=== PATIENT | female | born 1930 | race Caucasian/White ===

== ENCOUNTER 2018-01-02 15:08 | Inpatient (IN) | payer OTHER ==
--- NOTE | 2018-01-02 15:13 | EDPHY ---
HPI/HX/ROS/PE/MDM Narrative: CHIEF COMPLAINT: Fall, right-sided injuries, right femur pain HPI: The patient is a deaf 87 y/o female arriving via EMS complaining of right leg pain and right arm injuries secondary to a fall while hiking at [facility] this afternoon. [place]. Per EMS, she described a mechanical trip on a loose rock and fall onto her right side. She denies head strike, loss of consciousness, midline spinal pain, weakness, paresthesias, or symptoms preceding the fall. She primarily complains of severe proximal right femur pain and abrasions and skin tears to her right forearm. She required 200mcg Fentanyl during extrication from the trail and received an additional 100mcg Fentanyl prior to arrival here. She is normally healthy and does not take anticoagulants. She communicates via lip reading only. Last PO intake 08:00 this morning. REVIEW OF SYSTEMS: Aside from elements discussed in the HPI, a comprehensive 10-point review of systems was reviewed and is negative. PMH: Deaf - reads lips only, no ASL; hypothyroidism SOCIAL HISTORY: Friends at bedside PHYSICAL EXAM: General:Patient is alert, in no acute distress. ENT:Eyes are normal to inspection. ENT inspection normal. Neck: Normal inspection. Full range of motion. Respiratory:No respiratory distress. Breath sounds normal bilaterally. Cardiovascular: Regular rate and rhythm. Strong peripheral pulses. Normal cap refill. Abdomen:The abdomen is nontender to palpation. There are no peritoneal signs. Back: Normal to inspection. No tenderness to palpation. Skin: Normal color. No rash. Warm and dry. Extremities: Right leg shortened and externally rotated with mid-thigh tenderness. U-shaped 3cm skin tear over right elbow. Otherwise extremities are normal in appearance with full range of motion. Neuro: Oriented x3. Normal motor function. Normal sensory function. ED Course: This is a deaf but otherwise healthy 87 y/o female who presents with right leg pain secondary to a mechanical fall while hiking this afternoon. Her right leg is shortened and externally rotated on exam and she has a skin tear to her right elbow. She is neurovascularly intact. Suspect femur fracture. Plan for IV , labs, hip x-ray, wound care, and pain management as needed. 0.25mg IV Dilaudid ordered. Hip x-ray: right intertrochanteric fracture. The 12 lead EKG was interpreted by myself. See hard copy and/or "tracemaster" electronic copy for interpretation. Reassessed patient and discussed findings with her and family at bedside. She will require admission for surgical repair of her femur fracture. 1610: Consulted with Dr. Guerrier, orthopedist. He will assess patient during admission. 1620: Spoke with hospitalist service. Dr. Argueta accepts admission. - Data Points Imaging Results: Imaging Impressions Hip X-Ray 01/02/18 15:12 Impression: Acute right intertrochanteric hip fracture, with a rotated lesser trochanter. Imaging: I viewed and interpreted images myself Laboratory Results: Laboratory Results 01/02/18 16:15 01/02/18 16:15 01/02/18 01/02/18 01/02/18 16:22 16:15 16:15 WBC 13.62 10^3/uL H 10^3/uL (3.80-9.50) RBC 3.63 10^6/uL L 10^6/uL (4.18-5.33) Hgb 11.1 g/dL L g/dL (12.6-16.3) Hct 34.3 % L % (38.0-47.0) MCV 94.5 fL fL (81.5-99.8) MCH 30.6 pg pg (27.9-34.1) MCHC 32.4 g/dL g/dL (32.4-36.7) RDW 13.1 % % (11.5-15.2) Plt Count 203 10^3/uL 10^3/uL (150-400) MPV 10.1 fL fL (8.7-11.7) Neut % (Auto) 89.8 % H % (39.3-74.2) Lymph % (Auto) 5.2 % L % (15.0-45.0) [place] % (Auto) 4.1 % L % (4.5-13.0) Eos % (Auto) 0.1 % L % (0.6-7.6) Baso % (Auto) 0.3 % % (0.3-1.7) Nucleat RBC Rel Count 0.0 % % (0.0-0.2) Absolute Neuts (auto) 12.22 10^3/uL H 10^3/uL (1.70-6.50) Absolute Lymphs (auto) 0.71 10^3/uL L 10^3/uL (1.00-3.00) Absolute Monos (auto) 0.56 10^3/uL 10^3/uL (0.30-0.80) Absolute Eos (auto) 0.02 10^3/uL L 10^3/uL (0.03-0.40) Absolute Basos (auto) 0.04 10^3/uL 10^3/uL (0.02-0.10) Absolute Nucleated RBC 0.00 10^3/uL 10^3/uL (0-0.01) Immature Gran % 0.5 % % (0.0-1.1) Immature Gran # 0.07 10^3/uL 10^3/uL (0.00-0.10) PT 14.0 SEC SEC (12.0-15.0) INR 1.06 (0.83-1.16) APTT 25.6 SEC SEC (23.0-38.0) Sodium 137 mEq/L mEq/L (135-145) Potassium 4.6 mEq/L mEq/L (3.3-5.0) Chloride 107 mEq/L mEq/L (97-110) Carbon Dioxide 23 mEq/l mEq/l (22-31) Anion Gap 7 mEq/L L mEq/L (8-16) BUN 19 mg/dL mg/dL (7-23) Creatinine 0.7 mg/dL mg/dL (0.6-1.0) Estimated GFR > 60 Glucose 131 mg/dL H mg/dL (70-100) Calcium 8.4 mg/dL L mg/dL (8.5-10.4) Medications Given: Discontinued Medications Hydromorphone HCl (Dilaudid) 0.25 mg IVP EDNOW ONE Stop: 01/02/18 15:25 Last Admin: 01/02/18 15:30 Dose: 0.25 mg Hydromorphone HCl (Dilaudid) 0.25 mg IVP EDNOW ONE Stop: 01/02/18 16:17 Last Admin: 01/02/18 16:23 Dose: 0.25 mg General Time Seen by Provider: 01/02/18 15:08 Initial Vital Signs: Initial Vital Signs Temperature (C) 37.1 C 01/02/18 15:17 Heart Rate 87 01/02/18 15:17 Respiratory Rate 16 01/02/18 15:17 Blood Pressure 171/93 H 01/02/18 15:17 O2 Sat (%) 93 01/02/18 15:17 O2 Delivery Mode Nasal Cannula O2 (L/minute) 3 Allergies/Adverse Reactions: No Known Allergies Allergy (Unverified 01/02/18 15:19) Home Medications: Medication Instructions Recorded Ascorbic Acid [Vitamin C 500 mg 3,000 mg PO BID 01/02/18 (*)] Estradiol [Estrace Vaginal (*)] 1 jose david VAG HS 01/02/18 Herbals/Supplements -Info Only 1 ea PO DAILY 01/02/18 Levothyroxine [Synthroid 125 mcg 125 mcg PO DAILY06 01/02/18 (*)] Liothyronine Sodium [Cytomel 5 mcg 5 mcg PO DAILY 01/02/18 (*)] Multivitamins [Multivitamin (*)] 1 tab PO DAILY 01/02/18 Progesterone,Micronized 100 mg PO DAILY 01/02/18 [Prometrium 100mg (RX)] Departure - Departure Disposition: [facility] Inpatient Acute Clinical Impression: Fracture, intertrochanteric, right femur Qualifiers: Encounter type: initial encounter Fracture type: closed Fracture alignment: displaced Qualified Code(s): S72.141A - Displaced intertrochanteric fracture of right femur, initial encounter for closed fracture Condition: Fair Referrals: Patient,NotPresent [Unknown] - As per Instructions Report Scribed for: Michael Pang Report Scribed by: Keerthi Gay Date of Report: 01/02/18 Time of Report: 15:13 Physician Review and Approval Statement: Portions of this note were transcribed by an ED scribe. I personally performed the history, physical exam, and medical decision making; and confirm the accuracy of the information in the transcribed note.
[2018-01-02] MEDS ORDERED: HYDROmorphONE/DILAUDID 2 MG/ML INJ IVP ONE ×2 (15:24→16:16)
[2018-01-02] MEDS ORDERED: HYDROmorphONE/DILAUDID 1 MG/ML INJ ONE (15:25)
--- NOTE | 2018-01-02 15:31 | CPEKG ---
Heart Rate: 89 RR Interval: 674 P-R Interval: 148 QRSD Interval: 78 QT Interval: 400 QTC Interval: 487 P [place]: 72 QRS [place]: -43 T Wave [place]: 68 EKG Severity - ABNORMAL ECG - EKG Impression: SINUS RHYTHM EKG Impression: ATRIAL PREMATURE COMPLEX EKG Impression: PROBABLE LEFT ATRIAL ABNORMALITY EKG Impression: LEFT AXIS DEVIATION EKG Impression: LEFT VENTRICULAR HYPERTROPHY EKG Impression: ANTERIOR INFARCT, AGE INDETERMINATE EKG Impression: BORDERLINE PROLONGED QT INTERVAL Electronically Signed By: Michael Pang 02-Jan-2018 17:00:38
[2018-01-02 16:26] LABS: PLATELET COUNT 203 10^3/uL (150-400)
[2018-01-02] MEDS ORDERED: ONDANSETRON 4 MG/2 ML VIAL IVP PRN ×2 (16:41→22:38)
[2018-01-02] MEDS ORDERED: ONDANSETRON DISINTEGRATING 4 MG TAB PO PRN (16:41)
[2018-01-02] MEDS ORDERED: ACETAMINOPHEN 325 MG TAB PO PRN (16:41)
[2018-01-02] MEDS ORDERED: D5W 1/2 NS W/ 20 KCl/L 1,000 ML IV SCH (16:45)
[2018-01-02 16:46] LABS: INR 1.06 (0.83-1.16)
[2018-01-02] MEDS ORDERED: hydrALAZINE 20 MG/ML VIAL IVP PRN (18:31)
[2018-01-02] MEDS ORDERED: hydrALAZINE 20 MG/ML VIAL IVP ONE (18:45)
[2018-01-02] MEDS ORDERED: MAGNESIUM HYDROXIDE 30 ML UDCUP PO PRN (19:12)
[2018-01-02] MEDS ORDERED: BISACODYL 10 MG SUPP PR PRN (19:12)
[2018-01-02] MEDS ORDERED: LACTULOSE 20 GM/30 ML UDCUP PO PRN (19:12)
--- NOTE | 2018-01-02 19:16 | PDGENHP ---
History and Physical - Chief Complaint Acute hip pain - History of Present Illness Primary care provider: Dr. Young in [place], [place] HPI: 87-year-old female presents with acute hip pain characterized as sharp, located in her right hip with some associated posterior lateral right-sided rib pain as well as skin tears located on her right arm. Onset of symptoms was on the day of presentation occurring after the patient experienced was described as a mechanical fall onto the affected area. This occurred while the patient and her partner were hiking. The pain has been of constant duration thereafter. It has been somewhat alleviated by 300 mcg of fentanyl. Prior to her onset of symptoms, the patient had otherwise been feeling well, and she had been visiting family here in [place]. She is otherwise a very physically active person, engaging in brisk walking approximately 30 min per day, without any chest pain or shortness of breath provoked by that level of activity. History Information - Allergies/Home Medication List Allergies/Adverse Reactions: No Known Allergies Allergy (Unverified 01/02/18 15:19) Home Medications: Ascorbic Acid [Vitamin C 500 mg (*)] 3,000 mg PO BID 01/02/18 [Last Taken Unknown] Estradiol [Estrace Vaginal (*)] 1 jose david VAG HS 01/02/18 [Last Taken Unknown] Herbals/Supplements -Info Only 1 ea PO DAILY 01/02/18 [Last Taken Unknown] Levothyroxine [Synthroid 125 mcg (*)] 125 mcg PO DAILY06 01/02/18 [Last Taken Unknown] Liothyronine Sodium [Cytomel 5 mcg (*)] 5 mcg PO DAILY 01/02/18 [Last Taken Unknown] Multivitamins [Multivitamin (*)] 1 tab PO DAILY 01/02/18 [Last Taken Unknown] Progesterone,Micronized [Prometrium 100mg (RX)] 100 mg PO DAILY 01/02/18 [Last Taken Unknown] I have personally reviewed and updated: family history, medical history, social history, surgical history - Past Medical History Additional medical history: Hypothyroidism. 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 - Surgical History Reports: no pertinent surgical hx - Family History Additional family history: No family history of venous thromboembolism - Social History Smoking Status: Never smoked Alcohol Use: None Drug Use: None Additional social history: From [facility], visiting with her partner, she has a son who lives locally, the patient engages in 30 min of brisk walking daily Review of Systems Review of Systems: ROS: 10pt was reviewed & negative except for what was stated in HPI & below Muscolosketal: Reports: joint pain (Right hip) Skin: Reports: other (Skin tears right arm) Physical Exam Physical Exam: Temp Pulse Resp BP Pulse Ox 37.1 C 105 H 18 181/121 H 96 01/02/18 18:04 01/02/18 18:04 01/02/18 18:04 01/02/18 19:02 01/02/18 18:04 O2 (L/minute) 2 Constitutional: no apparent distress, appears nourished, not in pain Eyes: PERRL, anicteric sclera, EOMI, other (Clear visual field deficits) Ears, Nose, Mouth, Throat: moist mucous membranes, ears appear normal, no oral mucosal ulcers, hard of hearing Cardiovascular: regular rate and rhythym, no murmur, rub, or gallop, No edema Respiratory: no respiratory distress, no rales or rhonchi, clear to auscultation Gastrointestinal: normoactive bowel sounds, soft, non-tender abdomen, no palpable masses Skin: other (Right upper extremity bandaged, no bruising or abrasion over right lateral chest) Musculoskeletal: other (Shortened and externally rotated right lower extremity with limited range of motion secondary to pain, tenderness to palpation over the lateral hip joint which is currently deformed, no tenderness to palpation over the right ribs) Neurologic: AAOx3, sensation intact bilaterally Psychiatric: interacting appropriately, not anxious, not encephalopathic, thought process linear Lab Data & Imaging Review 01/02/18 16:15 01/02/18 16:15 WBC 13.62 10^3/uL (3.80-9.50) H 01/02/18 16:15 RBC 3.63 10^6/uL (4.18-5.33) L 01/02/18 16:15 Hgb 11.1 g/dL (12.6-16.3) L 01/02/18 16:15 Hct 34.3 % (38.0-47.0) L 01/02/18 16:15 MCV 94.5 fL (81.5-99.8) 01/02/18 16:15 MCH 30.6 pg (27.9-34.1) 01/02/18 16:15 MCHC 32.4 g/dL (32.4-36.7) 01/02/18 16:15 RDW 13.1 % (11.5-15.2) 01/02/18 16:15 Plt Count 203 10^3/uL (150-400) 01/02/18 16:15 MPV 10.1 fL (8.7-11.7) 01/02/18 16:15 Neut % (Auto) 89.8 % (39.3-74.2) H 01/02/18 16:15 Lymph % (Auto) 5.2 % (15.0-45.0) L 01/02/18 16:15 [place] % (Auto) 4.1 % (4.5-13.0) L 01/02/18 16:15 Eos % (Auto) 0.1 % (0.6-7.6) L 01/02/18 16:15 Baso % (Auto) 0.3 % (0.3-1.7) 01/02/18 16:15 Nucleat RBC Rel Count 0.0 % (0.0-0.2) 01/02/18 16:15 Absolute Neuts (auto) 12.22 10^3/uL (1.70-6.50) H 01/02/18 16:15 Absolute Lymphs (auto) 0.71 10^3/uL (1.00-3.00) L 01/02/18 16:15 Absolute Monos (auto) 0.56 10^3/uL (0.30-0.80) 01/02/18 16:15 Absolute Eos (auto) 0.02 10^3/uL (0.03-0.40) L 01/02/18 16:15 Absolute Basos (auto) 0.04 10^3/uL (0.02-0.10) 01/02/18 16:15 Absolute Nucleated RBC 0.00 10^3/uL (0-0.01) 01/02/18 16:15 Immature Gran % 0.5 % (0.0-1.1) 01/02/18 16:15 Immature Gran # 0.07 10^3/uL (0.00-0.10) 01/02/18 16:15 PT 14.0 SEC (12.0-15.0) 01/02/18 16:22 INR 1.06 (0.83-1.16) 01/02/18 16:22 APTT 25.6 SEC (23.0-38.0) 01/02/18 16:22 Sodium 137 mEq/L (135-145) 01/02/18 16:15 Potassium 4.6 mEq/L (3.3-5.0) 01/02/18 16:15 Chloride 107 mEq/L (97-110) 01/02/18 16:15 Carbon Dioxide 23 mEq/l (22-31) 01/02/18 16:15 Anion Gap 7 mEq/L (8-16) L 01/02/18 16:15 BUN 19 mg/dL (7-23) 01/02/18 16:15 Creatinine 0.7 mg/dL (0.6-1.0) 01/02/18 16:15 Estimated GFR > 60 01/02/18 16:15 Glucose 131 mg/dL (70-100) H 01/02/18 16:15 Calcium 8.4 mg/dL (8.5-10.4) L 01/02/18 16:15 Visualized and Interpreted imaging results: Yes Interpretation: Intratrochanteric and external rotation right hip Visualized and Interpreted EKG results: Yes EKG Interpretation: Positive for: other (Normal sinus rhythm with poor R-wave progression in V2 to V4, some ST elevation in V4) Assessment & Plan Assessment: 87-year-old female presents with acute mechanical fall and subsequent acute traumatic right femur intratrochanteric fracture Plan: 1. Intratrochanteric fracture. Acute, new problem this provider, further workup indicated. Traumatic, secondary to mechanical fall, requiring surgical intervention given her active baseline -discussed with Dr. Michael Pang, he has reported to me that Dr. Meg Guerrier will evaluate the patient and potentially operate tonight -RCRI score of 0, conferring is 0.5% perioperative cardiovascular morbidity and/ or mortality risk, resulting in low cardiovascular risk for intermediate orthopedic risk surgery, recommend proceeding to surgery without any additional cardiac risk stratification at this time -preoperative EKG does demonstrate ST elevation in V4, the patient is currently chest pain-free, has not had any anginal symptoms prior to her fall, and she has a very active cardiovascular baseline, conferring a positive metabolic equivalents score prior to her surgery, which has good prognostic value for positive outcome -that being said, given her somewhat impaired ability to communicate, will check a postoperative troponin level to ensure no evidence of a perioperative ischemia -pain medication as needed -bowel regimen -incentive spirometer -her son, who has the best ability to communicate with the patient, via lip reading, will stay at her bedside tonight -continue on IV fluids and NPO preoperatively 2. Traumatic fall. Right rib pain, recommend rib scan, a right upper extremity skin abrasions, continue local wound care, get wound consultation in a.m. If more advanced 3. Anemia. Mild, unclear etiology, monitor hemoglobin level postoperatively for any evidence of blood loss Diet. NPO until surgery, then regular thereafter Prophylaxis. High risk patient, SCDs preoperative comma begin Lovenox 40 tomorrow if no bleeding complications Code. Full, son is MD HERMOSILLO Disposition. Anticipated discharge uncertain this time, anticipated length stay is greater than 48 hr for reasonable medical necessity including acute intra trochanteric fracture requiring surgical intervention, intensive therapy thereafter and potential jail facility placement depending on mobility limitations.
[2018-01-02] MEDS ORDERED: ROPIVACAINE HCL 20 MG/10 ML INJ EP ONE (20:19)
[2018-01-02] MEDS ORDERED: PROPOFOL 200 MG/20 ML VIAL ONE (20:56)
[2018-01-02] MEDS ORDERED: fentaNYL 100 MCG/2 ML INJ ONE ×2 (20:56→21:54)
[2018-01-02] MEDS ORDERED: METOCLOPRAMIDE 10 MG/2 ML VIAL ONE (21:00)
[2018-01-02] MEDS ORDERED: ONDANSETRON 4 MG/2 ML VIAL ONE (21:00)
[2018-01-02] MEDS ORDERED: LIDOCAINE 2% JELLY 5 ML TUBE ONE (21:00)
[2018-01-02] MEDS ORDERED: ceFAZolin 1 GM VIAL ONE ×2 (21:40)
--- NOTE | 2018-01-02 21:43 | PDANEPAE ---
ANE Past Medical History - Pulmonary History Hx Oxygen in Use at Home: No Hx Sleep Apnea: Yes Sleep Apnea Screening Result - Last Documented: Positive - Endocrine History Hx Diabetes: No ANE Review of Systems Review of Systems: - Systems Neurological: Reports: other (pt is deaf, can lip read.) ANE Patient History - Allergies Allergies/Adverse Reactions: No Known Allergies Allergy (Unverified 01/02/18 15:19) - Home Medications Home Medications: Ascorbic Acid [Vitamin C 500 mg (*)] 3,000 mg PO BID 01/02/18 [Last Taken Unknown] Estradiol [Estrace Vaginal (*)] 1 jose david VAG HS 01/02/18 [Last Taken Unknown] Herbals/Supplements -Info Only 1 ea PO DAILY 01/02/18 [Last Taken Unknown] Levothyroxine [Synthroid 125 mcg (*)] 125 mcg PO DAILY06 01/02/18 [Last Taken Unknown] Liothyronine Sodium [Cytomel 5 mcg (*)] 5 mcg PO DAILY 01/02/18 [Last Taken Unknown] Multivitamins [Multivitamin (*)] 1 tab PO DAILY 01/02/18 [Last Taken Unknown] Progesterone,Micronized [Prometrium 100mg (RX)] 100 mg PO DAILY 01/02/18 [Last Taken Unknown] - NPO status NPO Since - Liquids (Date): 01/02/18 NPO Since - Liquids (Time): 12:30 NPO Since - Solids (Date): 01/02/18 NPO Since - Solids (Time): 08:00 - Smoking Hx Smoking Status: Never smoked - Alcohol Use Alcohol Use: None ANE Labs/Vital Signs - Labs Result Diagrams: 01/02/18 16:15 01/02/18 16:15 - Vital Signs Blood Pressure: 181/121 Heart Rate: 105 Respiratory Rate: 18 O2 Sat (%): 96 Height: 170.18 cm Weight: 56.699 kg ANE Physical Exam - Airway Mallampati Score: Class 2 - ASA Status ASA Status: II, E ANE Anesthesia Plan Anesthesia Plan: GA w LMA Urgent/Emergent Case: Drew sorenson completed preop but documented later for safe timely pt care
[2018-01-02] MEDS ORDERED: NALOXONE HCL 0.4 MG/ML INJ IVP PRN (22:38)
[2018-01-02] MEDS ORDERED: fentaNYL 100 MCG/2 ML INJ IVP PRN (22:38)
[2018-01-02] MEDS ORDERED: PROMETHAZINE HCL 25 MG/ML INJ IVP PRN (22:38)
[2018-01-02] MEDS ORDERED: LR 500 ML IV PRN (22:38)
--- NOTE | 2018-01-02 22:39 | POSTANESTH ---
Post Anesthetic Evaluation Cardiovascular Status: Normal, Stable Respiratory Status: Normal, Stable Level of Consciousness/Mental Status: Can Participate in Eval Pain Control: Adequate, Prn Tx Ordered Nausea/Vomiting Control: Adequate, Prn Tx Ordered Complications Possibly Related to Anesthesia: None Noted
--- NOTE | 2018-01-02 23:08 | GCON ---
[f rep st] CONSULTATION ORTHOPEDIC ER CONSULT CHIEF COMPLAINT: Right hip pain. DIAGNOSIS: Unstable right intertrochanteric hip fracture. Please see details of ER H and P and admitting H and P. Briefly, 87-year-old female in good health, visiting from [place], fell hiking at [place]. Triaged to the emergency room. X-rays were taken. Isolated inter troch fracture of her right hip. Pertinent orthopedic examination reveals a painful right hip. Slightly short and externally rotated. The left hip had active hip and knee range of motion with pain on the contralateral side. Abdomen is soft. Pelvis was stable. Bilateral upper extremities without pain. X-rays reviewed. IMPRESSION/RECOMMENDATION: Unstable right hip intertrochanteric fracture. The patient last ate at 8 a.m. Half hour at the bedside. Risks, benefits, expectations, alternative s were discussed. The patient would like to proceed with surgery. Her son and significant other wer e at the bedside as well. All questions were answered. /[id number]/MODL
--- NOTE | 2018-01-02 23:18 | GOP ---
[f rep st] OPERATIVE REPORT DATE OF OPERATION: 01/02/2018 SURGEON: Meg Guerrier MD PREOPERATIVE DIAGNOSIS: Right unstable intertrochanteric fracture. POSTOPERATIVE DIAGNOSIS: Right unstable intertrochanteric fracture. PROCEDURE PERFORMED: Right TFN intramedullary nail. FINDINGS: DESCRIPTION OF PROCEDURE: IMPLANTS USED: A 380 mm x 11 mm diameter Synthes TFN. The patient is an 87-year-old female who is from [place]. Visiting her son and friends and was hikin g up by [facility] and fell. Mechanical fall onto the right hip. Triaged to the emergency room. X-r ays were taken. Last meal was at 8 a.m. Please see details of ER H and P. The patient identified in the preoperative holding area. Consent laterality and preoperative antibio tics were confirmed delivered. All her questions were answered. Son and significant other was at th e bedside. The patient brought into the operating room, general anesthesia on the gurney. Transferred to the fr acture table. We used a scissor technique for the left extremity, well extremity. Well-padded tract ion post. The right hip was placed in slight traction. The knee cap was placed toward the ceiling. Slight internal rotation. Shower curtain dressing. The right hip was prepped and draped in the usual sterile fashion. Shower curtain dressing was used. A surgical time-out was performed. A lateral incision was made. Sharp d issection through the TFL and glute max. The IT band was entered. The greater trochanter was palpat ed. We used the pin over reaming technique. We checked this on AP lateral views. We used a ball-ti p guidewire down to the distal femur. Measured a 380 mm nail. We successively reamed by 1 mm from 8 .5 up to 12.5 and chose an 11 mm nail. We placed the nail easily. Put the cephalomedullary device i n. We had a tip to apex distance less than 10 m in a posterior inferior position. We were happy wit h the placement. We compressed the inter troch fracture with the assembly guide and removed all asse mblies. We took final fluoroscopic pictures in AP, half lateral, lateral, distal femur and midshaft femur and the nail was well placed. We did not place any distal interlocks. The wounds were copiously washed out with 500 cc warm normal saline. 0 PDS for glute max and TFL cara sure. Deep subcutaneous closure with 2-0 PDS and superficial subcutaneous closure with 3-0 Monocryl. Valeriano were used and a waterproof dressing applied. 20 cc of 0.2% ropivacaine were injected prior to the dressing. The patient was extubated, awakened, taken to the PACU in stable condition. Total surgical time was 1 hour. DISPOSITION: Extubated to the PACU in stable condition. /[id number]/MODL
[2018-01-02] MEDS: ASCORBIC ACID 500 MG TAB PO SCH (23:29)
[2018-01-02] MEDS: SENNOSIDES/DOCUSATE SODIUM TAB PO SCH (23:30)
[2018-01-02] MEDS: ESTRADIOL 42.5 GM CRTUBE VG SCH (23:30)
[2018-01-03] MEDS: HYDROCODONE/APAP 5/325 TAB PO PRN ×4 (02:46→23:31)
[2018-01-03] MEDS: LEVOTHYROXINE 125 MCG TAB PO SCH (05:15)
[2018-01-03 05:32] LABS: PLATELET COUNT 180 10^3/uL (150-400)
[2018-01-03] MEDS ORDERED: Herbals/Supplements -Info Only PO SCH (09:00)
[2018-01-03] MEDS ORDERED: LIOTHYRONINE SODIUM 5 MCG TAB PO SCH (09:00)
[2018-01-03] MEDS: ASCORBIC ACID 500 MG TAB PO SCH ×2 (09:55→20:09)
[2018-01-03] MEDS: SENNOSIDES/DOCUSATE SODIUM TAB PO SCH ×2 (09:56→20:09)
[2018-01-03] MEDS: MULTIVITAMINS 1 EACH TAB PO SCH (09:56)
[2018-01-03] MEDS: ENOXAPARIN 40 MG/0.4 ML SYR SC SCH (09:56)
[2018-01-03] MEDS: LIOTHYRONINE SODIUM 5 MCG TAB PO SCH ×2 (11:00→13:57)
[2018-01-03] MEDS: PROGESTERONE,MICR 100 MG CAP PO SCH (11:06)
--- NOTE | 2018-01-03 11:19 | PDMN ---
Medical Necessity Medical necessity: est los>2mn for intratrochanteric fracture r/t mechanical fall, R rib pain; admit for surgical intervention, intensive therapy post op w/ potential need for post d/c placement; comorbid anemia, congenital neural deafness and visual deficits; per order and H&P 01/02/18
--- NOTE | 2018-01-03 12:02 | HOSPPROG ---
Hospitalist Progress Note Assessment/Plan: 87-year-old female presents with acute mechanical fall and subsequent acute traumatic right femur intratrochanteric fracture. First encounter, chart reviewed. D/W PT and RN at bedside. Plan: # Intratrochanteric fracture. -Traumatic, secondary to mechanical fall, requiring surgical intervention given her active baseline -POD #1 Dr. Meg Guerrier -pain medication as needed -bowel regimen -incentive spirometer -her son, who has the best ability to communicate with the patient, via lip reading -continue on IV fluids and NPO preoperatively # Traumatic fall. - Right rib pain, recommend rib scan, a right upper extremity skin abrasions, continue local wound care # Anemia. -Mild, unclear etiology, monitor hemoglobin level postoperatively for any evidence of blood loss Diet. Regular Prophylaxis. High risk patient, SCDs preoperative comma begin Lovenox 40 tomorrow if no bleeding complications Code. Full, son is MD HERMOSILLO Dispo from [place] may need SNF here before flying home reviewed with family and CM Subjective: Tired today. Pain ok. No specific issues. Working with PT. Objective: Vital Signs Temp Pulse Resp BP Pulse Ox 37.1 C 91 16 112/53 L 95 01/03/18 11:48 01/03/18 11:48 01/03/18 11:48 01/03/18 11:48 01/03/18 11:48 Laboratory Results 01/03/18 04:48 01/03/18 04:48 01/02/18 01/03/18 01/04/18 05:59 05:59 05:59 Intake Total 2450 Output Total 950 Balance 1500 PT 14.0 SEC (12.0-15.0) 01/02/18 16:22 INR 1.06 (0.83-1.16) 01/02/18 16:22 - Physical Exam Constitutional: no apparent distress, appears nourished, uncomfortable Eyes: PERRL, anicteric sclera, EOMI Ears, Nose, Mouth, Throat: moist mucous membranes, ears appear normal, hard of hearing Cardiovascular: No JVD, No tachycardia, No edema Respiratory: no respiratory distress, no rales or rhonchi, reduced air movement Gastrointestinal: normoactive bowel sounds, No tenderness, No ascites Skin: warm, normal color, abrasion Musculoskeletal: joint tenderness, pain with ROM, muscular tenderness, abnormal gait, generalized weakness Neurologic: AAOx3 Psychiatric: interacting appropriately, not anxious, not encephalopathic, thought process linear ICD10 Worksheet Patient Problems: Problems Problem Status Onset Fracture, intertrochanteric, right femur Acute
--- NOTE | 2018-01-03 14:39 | SOAPPROG ---
[facility] Progress Note Assessment/Plan: Assessment: 87 yo f, pod #1 s/p fall s/p right inter troch fracture, s/p tfn nail by dr. rodriguez on 01/02/18 -doing well, progressing as to be expected -pain meds per primary -proph: per primary -pt/ot: RLE: 50% weight bearing -pt/ot: dispo probable snf? -ortho will continue to follow until discharge -f/u in office w/ dr. rodriguez or staff 7-10 days post surgery for post op follow up Plan: 01/03/18 14:38 01/03/18 14:39 01/03/18 22:47 Subjective: samm is a pleasant 87 yo female, pod #1 from TFN performed by dr. rodriguez on 01/02 s/p fall. she reports that the pain is well controlled, she denies any fevers or chills, has voided, has not passed gas or had a bowel movement yet, denies any numbness/ tingling. denies cp/sob/, n/v Objective: RLE: incisiosn c/d/i, no erythema or discharge or signs of infection, grossly nvid Vital Signs Temp Pulse Resp BP Pulse Ox 37.1 C 91 16 112/53 L 95 01/03/18 11:48 01/03/18 11:48 01/03/18 11:48 01/03/18 11:48 01/03/18 11:48 Laboratory Results 01/03/18 04:48 01/03/18 04:48 01/02/18 01/03/18 01/04/18 05:59 05:59 05:59 Intake Total 2450 Output Total 950 250 Balance 1500 -250 PT 14.0 SEC (12.0-15.0) 01/02/18 16:22 INR 1.06 (0.83-1.16) 01/02/18 16:22 - Pending Discharge Pending Discharge Within 24 Hours: No Pending Discharge Within 48 Hours: No ICD10 Worksheet Patient Problems: Problems Problem Status Onset Fracture, intertrochanteric, right femur Acute
[2018-01-03] MEDS: HYDROmorphONE/DILAUDID 1 MG/ML INJ IVP PRN (14:44)
--- NOTE | 2018-01-03 16:21 | ASMTCMCOM ---
CM Note CM Note Notes: Pt had surgery for hip fx after a fall. Pt resides in [place] and is here visiting family. OT rec SNF, PT eval pending. Pt/family want SNF in [place] since son resides there, referrals sent to [facility]. CM to follow. D/c plan of care: SNF Date Signed: 01/03/2018 04:20 PM Electronically Signed By:JAYSHREE Ralph
[2018-01-03] MEDS: VSL#3 1 EACH CAP PO SCH (20:09)
[2018-01-03] MEDS: MELATONIN 3 MG TAB PO SCH (20:09)
[2018-01-03] MEDS: ESTRADIOL 42.5 GM CRTUBE VG SCH (20:09)
[2018-01-04] MEDS: HYDROmorphONE/DILAUDID 2 MG TAB PO PRN ×4 (00:13→21:29)
[2018-01-04] MEDS: LEVOTHYROXINE 125 MCG TAB PO SCH (06:09)
[2018-01-04] MEDS: HYDROmorphONE/DILAUDID 1 MG/ML INJ IVP PRN (08:50)
[2018-01-04] MEDS: ENOXAPARIN 40 MG/0.4 ML SYR SC SCH (09:00)
[2018-01-04] MEDS: MULTIVITAMINS 1 EACH TAB PO SCH (09:01)
[2018-01-04] MEDS: SENNOSIDES/DOCUSATE SODIUM TAB PO SCH ×2 (09:02→20:56)
[2018-01-04] MEDS: LIOTHYRONINE SODIUM 5 MCG TAB PO SCH (09:02)
[2018-01-04] MEDS: POLYETHYLENE GLYCOL 3350 17 GM PKT PO PRN ×2 (09:02→14:56)
[2018-01-04] MEDS: PROGESTERONE,MICR 100 MG CAP PO SCH (09:03)
[2018-01-04] MEDS: VSL#3 1 EACH CAP PO SCH ×2 (09:03→20:56)
--- NOTE | 2018-01-04 11:31 | HOSPPROG ---
Hospitalist Progress Note Assessment/Plan: 87-year-old female presents with acute mechanical fall and subsequent acute traumatic right femur intratrochanteric fracture. First encounter, chart reviewed. D/W RN. # Intratrochanteric fracture. -s/p tfn nail by Dr Guerrier on 01/02/18 -RLE 50% weight bearing -F/U with Dr Guerrier in7-10 days #pain due to the above -added scheduled Tylenol # Traumatic fall. -patient denies any pain in ribs, did not hit her head -she is hypoxic- will get a chest xray to r/o any broken ribs # Acute blood loss anemia. -post op -recheck in the a.m. -this could be an etiology of her tachycardia but blood pressure is stable -may require a transfusion #tachycardia + hypoxic -will get a CTA of her chest, she has had recent travel, surgery (her PE probability is moderate) -will get an EKG to further evaluate #severely [place] -understands her son well #DVT prophylaxis: LMWH Dispo from [place] , the plan is for a SNF and then to return home Subjective: Anna said her pain is better managed during my evaluation. Objective: Vital Signs Temp Pulse Resp BP Pulse Ox 37.2 C 98 18 114/54 L 98 01/04/18 11:05 01/04/18 11:05 01/04/18 11:05 01/04/18 11:05 01/04/18 11:05 Laboratory Results 01/04/18 04:50 01/03/18 04:48 01/03/18 01/04/18 01/05/18 05:59 05:59 05:59 Intake Total 2450 450 Output Total 950 2750 500 Balance 1500 -2300 -500 PT 14.0 SEC (12.0-15.0) 01/02/18 16:22 INR 1.06 (0.83-1.16) 01/02/18 16:22 - Physical Exam Constitutional: chronically ill appearing, uncomfortable, other (thin) Eyes: PERRL Ears, Nose, Mouth, Throat: hard of hearing (severely) Cardiovascular: regular rate and rhythym, tachycardia Respiratory: no respiratory distress, reduced air movement Skin: warm, No normal color (pale) Musculoskeletal: generalized weakness Neurologic: AAOx3 Psychiatric: interacting appropriately ICD10 Worksheet Patient Problems: Problems Problem Status Onset Fracture, intertrochanteric, right femur Acute
--- NOTE | 2018-01-04 14:41 | CPEKG ---
Heart Rate: 101 RR Interval: 594 P-R Interval: 124 QRSD Interval: 84 QT Interval: 328 QTC Interval: 426 P Erie: 77 QRS Erie: -38 T Wave Erie: 63 EKG Severity - ABNORMAL ECG - EKG Impression: SINUS TACHYCARDIA EKG Impression: ATRIAL PREMATURE COMPLEX EKG Impression: PROBABLE LEFT ATRIAL ABNORMALITY EKG Impression: LEFT AXIS DEVIATION EKG Impression: ANTERIOR INFARCT, OLD Electronically Signed By: Sinan Pizarro 12-Jan-2018 21:44:34
[2018-01-04] MEDS: ASCORBIC ACID 500 MG TAB PO SCH ×3 (14:57→20:55)
[2018-01-04] MEDS: ACETAMINOPHEN 500 MG TAB PO SCH ×2 (15:07→21:28)
[2018-01-04] MEDS ORDERED: IOPAMIDOL (ISOVUE 370) 100 ML BTL IV ONE (16:26)
[2018-01-04] MEDS: MELATONIN 3 MG TAB PO SCH (20:56)
[2018-01-04] MEDS: ESTRADIOL 42.5 GM CRTUBE VG SCH (21:00)
[2018-01-05] MEDS: LEVOTHYROXINE 125 MCG TAB PO SCH (05:20)
[2018-01-05] MEDS: ACETAMINOPHEN 500 MG TAB PO SCH ×2 (09:46→19:34)
[2018-01-05] MEDS: ENOXAPARIN 40 MG/0.4 ML SYR SC SCH (09:46)
[2018-01-05] MEDS: ASCORBIC ACID 500 MG TAB PO SCH ×2 (09:47→22:24)
[2018-01-05] MEDS: MULTIVITAMINS 1 EACH TAB PO SCH (09:48)
[2018-01-05] MEDS: HYDROmorphONE/DILAUDID 2 MG TAB PO PRN (09:48)
[2018-01-05] MEDS: VSL#3 1 EACH CAP PO SCH ×2 (09:49→22:23)
[2018-01-05] MEDS: LIOTHYRONINE SODIUM 5 MCG TAB PO SCH (10:10)
[2018-01-05] MEDS: PROGESTERONE,MICR 100 MG CAP PO SCH (10:10)
[2018-01-05] MEDS: SENNOSIDES/DOCUSATE SODIUM TAB PO SCH ×2 (10:29→21:41)
[2018-01-05] MEDS ORDERED: ACETAMINOPHEN 325 MG TAB PO ONE (11:39)
--- NOTE | 2018-01-05 11:41 | HOSPPROG ---
Hospitalist Progress Note Assessment/Plan: 87-year-old female presents with acute mechanical fall and subsequent acute traumatic right femur intratrochanteric fracture. # Intratrochanteric fracture. -s/p tfn nail by Dr Guerrier on 01/02/18 -RLE 50% weight bearing -F/U with Dr Guerrier in7-10 days #pain due to the above -added scheduled Tylenol -trying to avoid narcotics, she gets very drowsy # Traumatic fall. -patient denies any pain in ribs, did not hit her head -she is hypoxic- will get a chest xray to r/o any broken ribs # Acute blood loss anemia. -symptomatic w hypotension and persistent tachycardia -will transfuse one unit of prbc's #tachycardia + hypoxic -CTA is negative for a PE -reviewed the [address] #severely [place] -understands her son well #DVT prophylaxis: LMWH Dispo from [place] , the plan is for a SNF and then to return home. Will check labs in the morning and if stable will dc to SNF. Subjective: Anna said her pain is fine while in bed, she is very appreciative of the nursing staff. Objective: Vital Signs Temp Pulse Resp BP Pulse Ox 36.9 C 115 H 18 107/42 L 93 01/05/18 08:00 01/05/18 08:00 01/05/18 08:00 01/05/18 08:00 01/05/18 08:00 Laboratory Results 01/05/18 04:30 01/03/18 04:48 01/04/18 01/05/18 01/06/18 05:59 05:59 05:59 Intake Total 450 200 Output Total 2750 2000 100 Balance -2300 -1800 -100 PT 14.0 SEC (12.0-15.0) 01/02/18 16:22 INR 1.06 (0.83-1.16) 01/02/18 16:22 - Physical Exam Constitutional: other (thin) Eyes: PERRL Ears, Nose, Mouth, Throat: hard of hearing (severerly even w hearing aids) Cardiovascular: regular rate and rhythym Respiratory: no respiratory distress Gastrointestinal: normoactive bowel sounds Skin: warm, other (right hip w swelling) Musculoskeletal: generalized weakness Neurologic: AAOx3 Psychiatric: interacting appropriately ICD10 Worksheet Patient Problems: Problems Problem Status Onset Fracture, intertrochanteric, right femur Acute
[2018-01-05] MEDS: traMADol 50 MG TAB PO PRN ×2 (12:56→19:34)
--- NOTE | 2018-01-05 20:48 | SOAPPROG ---
SOAP Progress Note Assessment/Plan: Assessment: 87 yo f, pod #3 s/p fall s/p right inter troch fracture, s/p tfn nail by dr. rodriguez on 01/02/18 -patient to be transfused 1 unit prbc's due to low H/H, counseled patient and family that this sometimes occurs after a big fracture/surgery where the patient will need to be transfused for the acute blood loss. -pain meds per primary -proph: per primary -pt/ot: RLE: 50% weight bearing -pt/ot: dispo probable snf? -ortho will continue to follow until discharge -f/u in office w/ dr. rodriguez or staff 7-10 days post surgery for post op follow up Subjective: shaniqua reports she did well over night, she denies any issues, reports a little tachycardia/rapid heart beat sensation ans shortness of breath, but this was related to the low blood count and she is scheduled to be transfused 1 unit of prbc's this afternoon. otherwise, she hasn't walked with PT yet as she had a light headed experience and the nurses sat her back down in bed. denies any n/v/f/c, reports voiding and moving her bowels with out issues Objective: RLE: incisions c/d/i with priti in place, small traction blister posterior superior corner of the tegaderm, no signs of infection Vital Signs Temp Pulse Resp BP Pulse Ox 37.0 C 94 18 134/69 H 100 01/05/18 11:51 01/05/18 11:51 01/05/18 11:51 01/05/18 11:51 01/05/18 11:51 Laboratory Results 01/05/18 04:30 01/03/18 04:48 01/04/18 01/05/18 01/06/18 05:59 05:59 05:59 Intake Total 450 200 Output Total 2750 2000 700 Balance -2300 -1800 -700 PT 14.0 SEC (12.0-15.0) 01/02/18 16:22 INR 1.06 (0.83-1.16) 01/02/18 16:22 - Pending Discharge Pending Discharge Within 24 Hours: No Pending Discharge Within 48 Hours: No ICD10 Worksheet Patient Problems: Problems Problem Status Onset Fracture, intertrochanteric, right femur Acute
[2018-01-05] MEDS: ESTRADIOL 42.5 GM CRTUBE VG SCH (21:40)
[2018-01-05] MEDS: MELATONIN 3 MG TAB PO SCH (22:24)
[2018-01-06] MEDS: ACETAMINOPHEN 500 MG TAB PO SCH ×2 (01:09→15:55)
[2018-01-06] MEDS: traMADol 50 MG TAB PO PRN ×2 (01:10→15:56)
[2018-01-06] MEDS: LEVOTHYROXINE 125 MCG TAB PO SCH (06:20)
--- NOTE | 2018-01-06 11:31 | HOSPPROG ---
Hospitalist Progress Note Assessment/Plan: 87-year-old female presents with acute mechanical fall and subsequent acute traumatic right femur intratrochanteric fracture. # Intratrochanteric fracture. -s/p tfn nail by Dr Guerrier on 01/02/18 -RLE 50% weight bearing -F/U with Dr Guerrier in7-10 days #pain due to the above -added scheduled Tylenol -trying to avoid narcotics, she gets very drowsy # Traumatic fall. -patient denies any pain in ribs, did not hit her head -she is hypoxic- will get a chest xray to r/o any broken ribs # Acute blood loss anemia. -improved w transfusion #tachycardia + hypoxic -CTA is negative for a PE -reviewed the [address] -improved w transfusion #severely [place] -understands her son well #DVT prophylaxis: LMWH Dispo dc to [facility] Subjective: Maegan said she is feeling well today. Objective: Vital Signs Temp Pulse Resp BP Pulse Ox 36.3 C 115 H 17 127/59 H 99 01/06/18 07:31 01/06/18 07:31 01/06/18 07:31 01/06/18 07:31 01/06/18 07:31 Laboratory Results 01/06/18 04:40 01/03/18 04:48 01/05/18 01/06/18 01/07/18 05:59 05:59 05:59 Intake Total 200 750 500 Output Total 2000 1500 350 Balance -1800 -750 150 PT 14.0 SEC (12.0-15.0) 01/02/18 16:22 INR 1.06 (0.83-1.16) 01/02/18 16:22 - Physical Exam Constitutional: no apparent distress, appears nourished Ears, Nose, Mouth, Throat: hard of hearing Respiratory: no respiratory distress Gastrointestinal: normoactive bowel sounds Skin: other (right hip w swelling) Musculoskeletal: generalized weakness Neurologic: AAOx3 Psychiatric: interacting appropriately ICD10 Worksheet Patient Problems: Problems Problem Status Onset Fracture, intertrochanteric, right femur Acute
--- NOTE | 2018-01-06 11:36 | PDIAF ---
- Diagnosis Diagnosis: intertrochanteric hip fx s/p tfn nail, anemia, severly [place] Code Status: Full Code - Medication Management Discharge Medications: Medications to Continue on Transfer Ascorbic Acid [Vitamin C 500 mg (*)] 3,000 mg PO BID 01/02/18 [Last Taken Unknown] Estradiol [Estrace Vaginal (*)] 1 jose david VAG HS 01/02/18 [Last Taken Unknown] Herbals/Supplements -Info Only 1 ea PO DAILY 01/02/18 [Last Taken Unknown] Levothyroxine [Synthroid 125 mcg (*)] 125 mcg PO DAILY06 01/02/18 [Last Taken Unknown] Liothyronine Sodium [Cytomel 5 mcg (*)] 5 mcg PO DAILY 01/02/18 [Last Taken Unknown] Multivitamins [Multivitamin (*)] 1 tab PO DAILY 01/02/18 [Last Taken Unknown] Progesterone,Micronized [Prometrium] 100 mg PO DAILY 01/02/18 [Last Taken Unknown] Lact Cmb2/S.thermophl/Bif Cmb1 [Vsl#3 Cap (*)] 1 each PO BID 01/03/18 [Last Taken Unknown] D-Mannose Powder 1 tsp PO DAILY 01/05/18 [Last Taken Unknown] Acetaminophen [Tylenol ES 500 mg (*)] 1,000 mg PO TID tab 01/06/18 [Last Taken Unknown] Enoxaparin [Lovenox 40 MG (*)] 40 mg SC DAILY syr 01/06/18 [Last Taken Unknown] Melatonin [Melatonin 3 MG (*)] 3 mg PO HS tab 01/06/18 [Last Taken Unknown] Polyethylene Glycol 3350 [Miralax 17 gm (*)] 17 gm PO DAILY PRN pkt 01/06/18 [ Last Taken Unknown] Sennosides/Docusate Sodium [Senokot-S] 1 - 2 tab PO BID tab 01/06/18 [Last Taken Unknown] traMADol [Ultram 50 mg (*)] 50 mg PO Q6HRS PRN tab 01/06/18 [Last Taken Unknown ] Discharge Medications: Refer to the Discharge Home Medication list for PRN reason. - Orders Services needed: Physical Therapy, Occupational Therapy Diet Recommendation: no restrictions on diet Diet Texture: Regular Texture Diet Additional Instructions: 50 % weight bearing to right lower extremity see Dr Guerrier next week, needs staple removal patient very [place], does best with lights on, hearing aids in and talk to her left ear continue Lovenox per Dr Guerrier - Labs/Radiology HCT/HGB Date: 01/09/18 - Follow Up Care Current Providers and Referrals: Patient,NotPresent [Unknown] - As per Instructions Meg Guerrier MD [Medical Doctor] -
[2018-01-06] MEDS: ENOXAPARIN 40 MG/0.4 ML SYR SC SCH (11:50)
[2018-01-06] MEDS: VSL#3 1 EACH CAP PO SCH (11:51)
[2018-01-06] MEDS: MULTIVITAMINS 1 EACH TAB PO SCH (11:51)
[2018-01-06] MEDS: ASCORBIC ACID 500 MG TAB PO SCH (11:53)
--- NOTE | 2018-01-06 12:15 | GDS ---
[f rep st] DISCHARGE SUMMARY DISCHARGE DIAGNOSES: 1. Intertrochanteric fracture, status post repair. 2. Pain due to this. 3. Traumatic fall. 4. Acute blood loss anemia. 5. Tachycardia and hypoxemia. 6. Severely hard of hearing. CONSULTATION: Dr. Meg Guerrier. HISTORY OF PRESENT ILLNESS: The patient is an 87-year-old female who presented with mechanical fall, and a traumatic right femur intertrochanteric fracture. She had surgery with Dr. Guerrier on January 02, and overall did well with surgery. She was noted to be persistently tachycardic and hypoxic. A CTA was done due to recent travel and recent surgery. This was negative for pulmonary emboli. It was also noted several days later, she had some acute blood loss anemia. She was treated with 1 unit of packed red blood cells with good results. The patient is feeling markedly better. She will be discharged to [facility]. HOSPITAL COURSE: 1. Intertrochanteric fracture. She is status post TFN nail by Dr. Guerrier on January 02. She will follow up with Dr. Guerrier in 7-10 days. She is to be 50% weightbearing to her right lower extremity. 2. Pain. Have avoid narcotics because they cause such confusion. She has done very well with scheduled Tylenol and tramadol. 3. Traumatic fall, stable. 4. Acute blood loss anemia, improved with transfusion. 5. Tachycardic and hypoxemia, resolved. 6. Severely hard of hearing. I have written instructions on the inner agency form to help with communication with the patient. DISCHARGE CONDITION: Stable. VITAL SIGNS: Blood pressure is 149/86, heart rate of 90, respiratory rate of 17 , O2 sats on 2 L are 94%, temperature 36.7 Celsius. MEDICATIONS AT DISCHARGE: Please see the EMR. DISCHARGE INSTRUCTIONS: 1. Follow up Dr. Guerrier next week. 2. Fifty percent weightbearing on her right lower extremity. 3. If she develops fever, chills, chest pain, shortness of breath, return to the ER. Greater than 30 minutes discharging and coordinating the patient's care. /[id number]/MODL MTDD
[2018-01-06] MEDS: PROGESTERONE,MICR 100 MG CAP PO SCH (12:21)
[2018-01-06] MEDS: SENNOSIDES/DOCUSATE SODIUM TAB PO SCH (12:21)
--- NOTE | 2018-01-06 14:00 | ASMTLACE ---
[facility]ACE Length of stay for Answers: 4-6 days current admission Acuity / Level of Answers: Yes Care: Did the patient have an inpatient admission? Comorbidities - select Answers: Other Notes: Hypothyroidism; deafnes s all that apply # of Emergency department Answers: 1-2 visits in the last 6 months Score: 9 Date Signed: 01/06/2018 01:59 PM Electronically Signed By:JAYSHREE aRlph
--- NOTE | 2018-01-06 14:01 | ASMTCMCOM ---
CM Note CM Note Notes: Pt medically stable for d/c to [facility]. Orders sent in [employer]. Sonia with [facility] scheduled w[facility] transport for 1800. Sonia will update pt family. LINDA Summers to call report. Date Signed: 01/06/2018 02:00 PM Electronically Signed By:JAYSHREE Ralph
[2018-01-06 15:52] VITALS: BP 151/75
[2018-01-06] MEDS: LIOTHYRONINE SODIUM 5 MCG TAB PO SCH (15:56)
== END 2018-01-06 17:47 | DRG 481 ==
LOC: F3N 17:27
PROVIDERS: ADMIT Internal Medicine; ATTEND Internal Medicine
PROC: 0QS606Z Reposition Right Upper Femur with Intramedullary Internal Fixation Device, Open Approach (ICD-10-PCS; principal; 2018-01-02 20:00)
PROC: 30233N1 Transfusion of Nonautologous Red Blood Cells into Peripheral Vein, Percutaneous Approach (ICD-10-PCS; 2018-01-05)
DX: S72.141A Displaced intertrochanteric fracture of right femur, initial encounter for closed fracture (principal); R00.0 Tachycardia, unspecified; R09.02 Hypoxemia; D62 Acute posthemorrhagic anemia; W01.0XXA Fall on same level from slipping, tripping and stumbling without subsequent striking against object, initial encounter; Y93.01 Activity, walking, marching and hiking; E03.9 Hypothyroidism, unspecified; H91.90 Unspecified hearing loss, unspecified ear; G47.30 Sleep apnea, unspecified
CPT/HCPCS: 96374; 97116-GP; 97161-GP; 97166-GO; 97530-GP; 97535-GO; C1713; G8978-GP-CL; G8979-GP-CJ; G8987-GO-CM; G8988-GO-CK; J0360; J0690; J1170; J1650; J2405; J2704; J2765; J2795; J3010; P9016; Q9967